=== PATIENT | female | born 1995 | race African-American/Black ===

== ENCOUNTER 2017-02-17 23:14 | Emergency (ER) | payer OTHER ==
[2017-02-17 23:40] VITALS: BP 113/72
--- NOTE | 2017-02-17 23:55 | ED SKIN/ALLERGY COMPLAINT ---
History of Present Illness General Chief Complaint: Lower Extremity Problems Stated Complaint: RT LEG PAIN PER PT ? INFECTION Source: patient, old records Exam Limitations: no limitations Vital Signs & Intake/Output Vital Signs & Intake/Output Vital Signs Date Time Temp Pulse Resp B/P B/P Pulse O2 O2 Flow FiO2 Mean Ox Delivery Rate 02/18 0009 98 Room Air 02/17 2340 98.6 82 20 113/72 Allergies Coded Allergies: No Known Allergies (02/17/17) Reconcile Medications Cephalexin (Keflex) 500 MG CAPSULE 1 CAP PO TID abscess Oxycodone HCl/Acetaminophen (Percocet 5-325 MG Tablet) 5 MG-325 MG TABLET 1 TAB PO BID PRN pain Sulfamethoxazole/Trimethoprim (Bactrim Ds Tablet) 800 MG-160 MG TABLET 1 TAB PO BID toothache Triage Note: PER PT 5 BUMPS TO RT INNER THIGH THINK ITS AN INFECTION LMP 02/10/17 Triage Nurses Notes Reviewed? yes Onset: Gradual Duration: day(s): (3), constant Timing: recent history Severity: mild, moderate Severity Numbers: 5 Location: extremities Possible Factors: no cause identified No Modifying Factors: none Associated Symptoms: denies : No Patient currently breastfeeds: No HPI: 22-year-old female presents ER for evaluation complaining of a questionable abscess to her right inner thigh. She first was 3 days ago however states since then is Larger. She has a history of similar episode in the past that resolved with antibiotics. She states that it began to have discharge on its own and she did not require incision and drainage at that time. She denies any fever chills or other rashes to her skin. No urinary complaints. No associated symptoms otherwise pain is nonradiating aching and worse with palpation no other modifying factors (VANDANA LEMOS) Past History Travel History Traveled to [place] past 21 day No Medical History Any Pertinent Medical History? none Neurological: NONE EENT: NONE Cardiovascular: NONE Respiratory: NONE Gastrointestinal: NONE Hepatic: NONE Renal: NONE Musculoskeletal: NONE Psychiatric: NONE Endocrine: NONE Surgical History Surgical History: none Psychosocial History What is your primary language [place] Citizen Tobacco Use: Never used Family History Hx Contributory? No (VANDANA LEMOS) Review of Systems Review of Systems Constitutional: Reports: see HPI. All Other Systems: Reviewed and Negative Comments Review of systems: See HPI, All other systems negative. Constitutional, no chills no fever, no malaise HEENT: no sore throat no congestion, no ear pain Cardiovascular: No chest pain , no palpitation Skin: see hpi Respiratory: No dyspnea no cough no sputum no hemoptysis GI: No nausea no vomiting, no diarrhea, : No dysuria No hematuria, no frequency, no discharge Muscle skeletal: No joint pain, no joint swelling, no back pain, no neck pain, Neurologic: No numbness no headache Psych: No stress Heme/endocrine: No bruising Immunology: No lymphadenopathy (VANDANA LEMOS) Physical Exam Physical Exam General Appearance: well developed/nourished, no apparent distress, alert, awake Comments: Well-developed well-nourished patient in no apparent distress. HEENT: Atraumatic, extraocular motion intact Neck: Supple, FROM Back: FROM Cardiovascular: Regular rate and rhythms no murmurs rubs Respiratory: No respiratory distress. Patient speaking in full complete sentences. Breath sounds clear to auscultation bilaterally: NO W/R/R Extremities: full range of motion Neuro: awake, alert, and oriented to person, place and time. There were no obvious focal neurologic abnormalities. Skin: Warm & dry; developing 1.5 cm abscess indurated nonfluctuant to the right inner thigh, there is no streaking erythema to the skin no other rashes C exposed skin Psych: Mood affect normal, normal memory normal judgment. (VANDANA LEMOS) Progress Differential Diagnosis: abscess/cellulitis, anaphylaxis, asthma, contact dermatitis, drug reaction, erythema multiforme, lyme disease, shingles, urticaria Plan of Care: I discussed with the patient at length all of their results. I had an extensive conversation regarding need for close follow up with their primary care physician this week as well as return precautions. I answered all of their questions, they feel comfortable with the plan and follow-up care. I discussed with the patient/family the medications that they will receive. I gave them signs and symptoms that could indicate an adverse reaction. I have advised them to limit their activities until they can see how they respond to the medication. (VANDANA LEMOS) Departure Departure Time of Disposition: 0002 Disposition: HOME OR SELF CARE Condition: Stable Clinical Impression Primary Impression: Abscess Referrals: SANCHO FERRIS MD (PCP/Family) Additional Instructions: Keflex Bactrim as directed. Percocet for breakthrough pain. epson salt baths as discussed. Use caution as the Percocet may make you drowsy no driving or drinking alcohol while taking. Follow-up with her primary care physician return with any concerns. these were sent to [facility] Departure Forms: Customer Survey General Discharge Information Prescriptions: Current Visit Scripts Sulfamethoxazole/Trimethoprim (Bactrim Ds Tablet) 1 TAB PO BID #14 TAB Cephalexin (Keflex) 1 CAP PO TID #21 CAP Oxycodone HCl/Acetaminophen (Percocet 5-325 MG Tablet) 1 TAB PO BID PRN pain #10 TAB (VANDANA LEMOS) PA/SENIOR QUALITY MANAGER Co-Sign Statement Statement: ED Attending supervision documentation- [] I saw and evaluated the patient. I have also reviewed all the pertinent lab results and diagnostic results. I agree with the findings and the plan of care as documented in the PA's/SENIOR QUALITY MANAGER's documentation. [X] I have reviewed the ED Record and agree with the PA's/SENIOR QUALITY MANAGER's documentation. [] Additions or exceptions (if any) to the PAs/SENIOR QUALITY MANAGER's note and plan are summarized below: [] (GIOVANNI MUSA,MERRITT Yadav)
[2017-02-18] MEDS ORDERED: PERCOCET 5-3251 EACH PO (00:04)
[2017-02-18] MEDS ORDERED: BACTRIM DS TAB1 EACH PO (00:04)
[2017-02-18] MEDS ORDERED: KEFLEX500 M1 PO (00:04)
== END 2017-02-18 00:10 ==
LOC: ERH 23:14
DX: L02.415 Cutaneous abscess of right lower limb (principal)